=== PATIENT | female | born 1980 | race Hispanic/Latino ===

== ENCOUNTER 2019-02-01 11:26 | Emergency (ER) | payer MEDICAID ==
[2019-02-01] MEDS ORDERED: CYCLOBENZAPRINE HCL 10 MG TABLET ONE (12:27)
[2019-02-01] MEDS ORDERED: KETOROLAC TROMETHAMINE 60 MG/2 ML VIAL ONE (12:27)
[2019-02-01] MEDS ORDERED: DEXAMETHASONE SOD PHOSPHATE 4 MG/ML 1ML VIAL ONE (12:27)
== END 2019-02-01 12:46 | disposition home or self-care (01) ==
LOC: EDH 11:26
DX: M54.5 Low back pain (principal); M79.10 Myalgia, unspecified site
CPT/HCPCS: 96372 ×2; 99284; J1100; J1885

== ENCOUNTER → 2019-02-06 | Outpatient (CLI) | payer MEDICAID | END | disposition home or self-care (01) | LOC: RAH 15:03 | PROVIDERS: ATTEND Family Medicine | DX: M47.816 Spondylosis without myelopathy or radiculopathy, lumbar region (principal) | CPT/HCPCS: 72100 ==

== ENCOUNTER → 2019-05-16 | Outpatient (CLI) | payer MEDICAID | END | disposition home or self-care (01) | LOC: RAH 10:51 | PROVIDERS: ATTEND Family Medicine | DX: M51.26 Other intervertebral disc displacement, lumbar region (principal); M48.061 Spinal stenosis, lumbar region without neurogenic claudication | CPT/HCPCS: 72148 ==